=== PATIENT | male | born 1960 | race Caucasian/White ===

== ENCOUNTER 2016-09-09 10:10 | Day surgery (SDC) | payer BC ==
[~2016-09-09] VITALS: Ht 167.6 cm; Wt 98.4 kg
[2016-09-09 10:41] VITALS: Ht 167.6 cm; Wt 98.4 kg
[2016-09-09 11:29] VITALS: BP 116/74; PULSE 60; RESP 18
[2016-09-09 13:05] VITALS: BP 104/73; PULSE 56; RESP 20
[2016-09-09] MEDS ORDERED: MIDAZOLAM 1 MG/ML 2 ML INJ ONE ×2 (13:16)
[2016-09-09] MEDS ORDERED: FENTAnyl 50 MCG/ML VIAL ONE (13:16)
--- NOTE | 2016-09-09 13:42 | GILP ---
DATE OF PROCEDURE: PROCEDURE PERFORMED: Colonoscopy with polypectomy. INDICATION: A 56-year-old male undergoing this procedure for colon cancer screening. The risks of the procedure, related and unrelated complications, anesthetic risks, alternatives discussed. Infor med consent was obtained. DESCRIPTION OF PROCEDURE: The patient was brought to the GI lab and sedated with Versed 4 mg, fenta nyl 100 mcg. After obtaining sedation, scope was passed with much ease into rectum, advanced throug h sigmoid, descending, transverse colon all the way into cecum. Appendiceal orifice identified ente ring to terminal ileum which was normal. While coming out, mucosa thoroughly inspected. The rest of the colon was normal. There was a polyp at the rectosigmoid junction, 7 to 8 mm in diameter, successfully removed by cold snare technique. Polyp was retrieved and sent for analysis. Retroflexion in the rectum was not possible because pat ient was getting restless. Scope was straightened out and removed with good patient tolerance. Sma ll hemorrhoids identified. IMPRESSION: 1. Normal findings all the way into cecum. 2. Normal terminal ileum. 3. A small polyp in the rectosigmoid junction, successfully removed by cold snare technique. 4. Small hemorrhoids. PLAN: Stay on high fiber diet. Will review histopathology of the polyp and based on the histopatho logy will decide regarding future colonoscopy. Dictated By: CHAS HOGAN/ISH Conf#: [id number] DID#: [id number]
== END 2016-09-09 14:49 | disposition home or self-care (01) ==
LOC: GIL 10:10
PROVIDERS: ATTEND Internal Medicine Gastroenterology
DX: Z12.11 Encounter for screening for malignant neoplasm of colon (principal); D12.5 Benign neoplasm of sigmoid colon; I10 Essential (primary) hypertension
CPT/HCPCS: 45385; 88305; J2250; J3010; Z7610